=== PATIENT | male | born 1985 | race Caucasian/White ===

== ENCOUNTER 2021-04-27 17:55 | Emergency (ER) | payer SELFPAY ==
[2021-04-27 18:03] VITALS: BP 139/81
[2021-04-27] MEDS ORDERED: oxyCODONE /ACETAMINOPHEN 5-325MG TAB PO ONE (18:53)
[2021-04-27] MEDS ORDERED: TETRACAINE 0.5% OPHTH SOLN 4ML OU PRN (18:53)
[2021-04-27] MEDS ORDERED: FLUORESCEIN 1 MG STRIP OP ONE (18:53)
--- NOTE | 2021-04-27 19:03 | Emergency Department Report ---
ED General Adult HPI - General Chief complaint: Eye Problems Stated complaint: LEFT EYE PROBLEMS Time Seen by Provider: 04/27/21 18:17 Source: patient Mode of arrival: Ambulatory Limitations: No Limitations - History of Present Illness Initial comments: 35-year-old -[place] male patient presents with complaints of sudden onset of left eye pain upon waking this morning. Patient states he accidentally fell asleep with his contacts in his eyes last night. He states it feels as if there is a foreign body in his eye. Patient states he did remove his contacts, however his eye remains irritated. He denies any vision changes, but admits to photophobia. He rates his pain as a 9/10 in severity. Severity scale (0 -10): 5 - Related Data Previous Rx's Medication Instructions Recorded Last Taken Type Acetaminophen/Codeine [Tylenol 1 tab PO Q6H PRN #12 tab 04/27/21 Unknown Rx /Codeine # 3 tab] Ibuprofen [Motrin 800 MG tab] 800 mg PO Q8HR PRN #20 tablet 04/27/21 Unknown Rx Ofloxacin 0.3% [Floxin 0.3% Otic] 0 drops OT QDAY 10 Days #1 bottle 04/27/21 Unknown Rx Allergies Allergy/AdvReac Type Severity Reaction Status Date / Time No Known Allergies Allergy Unverified 04/27/21 17:59 ED Review of Systems ROS: Stated complaint: LEFT EYE PROBLEMS Other details as noted in HPI ED Past Medical Hx - Medications Home Medications: Home Medications Medication Instructions Recorded Confirmed Last Taken Type Acetaminophen/Codeine [Tylenol 1 tab PO Q6H PRN #12 tab 04/27/21 Unknown Rx /Codeine # 3 tab] Ibuprofen [Motrin 800 MG tab] 800 mg PO Q8HR PRN #20 tablet 04/27/21 Unknown Rx Ofloxacin 0.3% [Floxin 0.3% Otic] 0 drops OT QDAY 10 Days #1 bottle 04/27/21 Unknown Rx ED Physical Exam - General Limitations: No Limitations General appearance: alert, in no apparent distress - Head Head exam: Present: atraumatic, normocephalic - Eye Eye exam: Present: conjunctival injection (Left with manual swelling of the upper and lower eyelid noted; no obvious foreign bodies noted), other (Fluorescein stain of the eye performed and shows a round area measuring about 0.75 cm in diameter of uptake with an X shaped abrasion in the center noted). Absent: scleral icterus Pupils: Present: other (Eyelid everted and swept and no foreign bodies noted) - Expanded Eye Exam Expanded Eyelids: Erythema: Left (Mild), Swelling: Left (Mild) Sclera/Conjunctival: Injection: Left - Respiratory Respiratory exam: Absent: respiratory distress - Cardiovascular Cardiovascular Exam: Present: regular rate - Neurological Exam Neurological exam: Present: alert, oriented X3 - Psychiatric Psychiatric exam: Present: normal affect, normal mood - Skin Skin exam: Present: warm, dry, intact, normal color. Absent: rash ED Course Vital Signs 04/27/21 04/27/21 18:02 19:00 Temperature 98 F Pulse Rate 70 Respiratory 20 16 Rate Blood Pressure 139/81 [Right] O2 Sat by Pulse 99 Oximetry ED Medical Decision Making - Medical Decision Making 35-year-old -[place] male patient presents with complaints of sudden onset of left eye pain upon waking this morning. Patient states he accidentally fell asleep with his contacts in his eyes last night. He states it feels as if there is a foreign body in his eye. Patient states he did remove his contacts, however his eye remains irritated. He denies any vision changes, but admits to photophobia. He rates his pain as a 9/10 in severity. Significant corneal abrasion noted on Gipson lamp exam. Given contact lens wear and signs of abrasion, will cover patient for corneal ulcer ofloxacin. He is to follow-up with ophthalmology within the next 24 hours. His pain is controlled he is well-appearing and stable for discharge home. Patient continues to deny vision changes. Strict return precautions were discussed in detail with patient who verbalizes understanding. Critical care attestation.: If time is entered above; I have spent that time in minutes in the direct care of this critically ill patient, excluding procedure time. ED Disposition Clinical Impression: Corneal abrasion, left Disposition: 01 HOME / SELF CARE / HOMELESS Is pt being admited?: No Condition: Stable Instructions: Corneal Abrasion Prescriptions: Ofloxacin 0.3% [Floxin 0.3% Otic] 0 drops OT QDAY 10 Days #1 bottle Ibuprofen [Motrin 800 MG tab] 800 mg PO Q8HR PRN #20 tablet PRN Reason: Pain, Moderate (4-6) Acetaminophen/Codeine [Tylenol /Codeine # 3 tab] 1 tab PO Q6H PRN #12 tab PRN Reason: Pain , Severe (7-10) Referrals: GOPI LOJA MD [Staff Physician] - 2-3 Days Forms: Work/School Release Form(ED)
== END 2021-04-27 19:43 | disposition home or self-care (01) ==
LOC: ED 17:55
DX: S05.02XA Injury of conjunctiva and corneal abrasion without foreign body, left eye, initial encounter (principal); X58.XXXA Exposure to other specified factors, initial encounter; Y93.89 Activity, other specified; Y92.89 Other specified places as the place of occurrence of the external cause; Y99.8 Other external cause status
CPT/HCPCS: 99283